=== PATIENT | female | born 1995 | race Caucasian/White ===

== ENCOUNTER 2017-07-30 19:35 | Emergency (ER) | payer BC | END 2017-07-30 20:40 | disposition short-term general hospital (02) | LOC: ER 19:35 | DX: R42 Dizziness and giddiness (principal) ==

== ENCOUNTER 2018-03-16 14:24 | Emergency (ER) | payer BC ==
[~2018-03-16] VITALS: Ht 160 cm; Wt 74.8 kg
[2018-03-16] MEDS ORDERED: CYCLOBENZAPRINE HCL 10 MG TAB PO ONE (15:00)
[2018-03-16] MEDS ORDERED: CYCLOBENZAPRINE5 MG PO (15:19)
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
[2018-03-16 17:20] VITALS: BP 122/79
== END 2018-03-16 16:50 | disposition home or self-care (01) ==
LOC: ER 14:24
DX: M54.2 Cervicalgia (principal); S16.1XXA Strain of muscle, fascia and tendon at neck level, initial encounter; V43.52XA Car driver injured in collision with other type car in traffic accident, initial encounter; Y92.488 Other paved roadways as the place of occurrence of the external cause; D64.9 Anemia, unspecified
CPT/HCPCS: 72125; 99283